=== PATIENT | female | born 2000 | race Two or more races ===

== ENCOUNTER 2021-01-13 07:03 | Emergency (ER) | payer OTHER ==
--- NOTE | 2021-01-13 08:20 | EDM.PDOC ---
ED HPI GENERAL MEDICAL PROBLEM - General Chief Complaint: General Stated Complaint: abd pain, RYDER, sore throat Time Seen by Provider: 01/13/21 07:22 Source of Information: Reports: Patient History Limitations: Reports: No Limitations - History of Present Illness INITIAL COMMENTS - FREE TEXT/NARRATIVE: Pt. presents to ER with complaints of cough, sore throat, abdominal cramping, and congestion. She was seen at [facility] last week. At that time, it was mainly abdominal cramping and diarrhea, but she states that the diarrhea has improved. She denies any fever or chills. No chest pain or shortness of breath. Denies any headache. She states that she is still experiencing diffuse abdominal cramping. It does not localize in one area. Pt. was prescribed bentyl and zofran at [facility] last week. She hadn't taken it since last night. She took it shortly before presenting to ER. During her stay, she reported that her symptoms were starting to improve. Denies any ill contacts. No recent antibiotic use. No recent hospitalizations or ill contacts. Has had 2 step covid vaccination and had the illness last january. Onset Date: 01/02/21 Location: Reports: Abdomen, Generalized Headache Pain Score (Numeric/FACES): 10 Abdominal Pain Score (Numeric/FACES): 10 - Related Data Allergies Allergy/AdvReac Type Severity Reaction Status Date / Time No Known Allergies Allergy Verified 01/13/21 07:11 Home Meds: Home Meds Dicyclomine [Bentyl] 1 tab PO QID PRN 01/13/21 [History] Etonogestrel [Nexplanon] 1 implant INJECT ASDIRECTED 01/13/21 [History] Ondansetron [Zofran ODT] 8 mg SL TID PRN 01/13/21 [History] Social & Family History - Tobacco Use Tobacco Use Status *Q: Current Every Day Tobacco User Years of Tobacco use: 2 Packs/Tins Daily: 0 Second Hand Smoke Exposure: Yes - Caffeine Use Caffeine Use: Reports: Coffee, Soda - Alcohol Use Days Per Week of Alcohol Use: 3 Number of Drinks Per Day: 2 Total Drinks Per Week: 6 - Recreational Drug Use Recreational Drug Use: Yes Drug Use in Last 12 Months: Yes Recreational Drug Type: Reports: Marijuana/Hashish Recreational Drug Use Frequency: Daily ED ROS GENERAL - Review of Systems Review Of Systems: See Below Constitutional: Reports: Malaise. Denies: Fever, Chills HEENT: Reports: Rhinitis, Sinus Problem, Throat Pain Respiratory: Reports: Cough Cardiovascular: Reports: No Symptoms Endocrine: Reports: No Symptoms GI/Abdominal: Reports: Abdominal Pain (cramping) : Reports: No Symptoms Musculoskeletal: Reports: No Symptoms Skin: Reports: No Symptoms Neurological: Reports: No Symptoms Psychiatric: Reports: No Symptoms Hematologic/Lymphatic: Reports: No Symptoms Immunologic: Reports: No Symptoms ED EXAM, GENERAL - Physical Exam Exam: See Below Exam Limited By: No Limitations General Appearance: Alert, WD/WN, No Apparent Distress Eye Exam: Bilateral Eye: EOMI, PERRL Throat/Mouth: Normal Inspection, Normal Lips, Normal Teeth, Normal Gums, Normal Oropharynx, Normal Voice, No Airway Compromise Head: Atraumatic, Normocephalic Neck: Normal Inspection, Supple, Non-Tender, Full Range of Motion Respiratory/Chest: No Respiratory Distress, Lungs Clear, Normal Breath Sounds, No Accessory Muscle Use, Chest Non-Tender Cardiovascular: Normal Peripheral Pulses, Regular Rate, Rhythm, No Edema, No JVD, No Murmur Peripheral Pulses: 4+: Radial (L) GI/Abdominal: Soft, Non-Tender, No Organomegaly, No Distention, No Mass (Female) Exam: Deferred Rectal (Female) Exam: Deferred Back Exam: Normal Inspection, Full Range of Motion Extremities: Normal Inspection, Normal Range of Motion, Non-Tender, No Pedal Edema, Normal Capillary Refill Neurological: Alert, Oriented, CN II-XII Intact, Normal Cognition, Normal Gait, Normal Reflexes, No Motor/Sensory Deficits Psychiatric: Normal Affect, Normal Mood Course - Vital Signs Last Recorded V/S: Last Vital Signs Temp 37.2 C 01/13/21 07:17 Pulse 53 L 01/13/21 07:17 Resp 14 01/13/21 07:17 BP 103/39 L 01/13/21 07:17 Pulse Ox 99 01/13/21 07:17 - Orders/Labs/Meds Orders: Active Orders 24 hr Category Date Time Status CULTURE STREP A CONFIRMATION [RM] Stat Lab 01/13/21 07:05 Results STREP SCRN A RAPID W CULT CONF [RM] Stat Lab 01/13/21 07:05 Results Isolation [COMM] Routine Oth 01/13/21 07:15 Active Labs: Laboratory Tests 01/13/21 Range/Units 07:05 SARS-CoV-2 RNA (DAMIEN) Negative (NEGATIVE) Departure - Departure Time of Disposition: :21 Disposition: Home, Self-Care 01 Clinical Impression: Viral illness - Discharge Information Instructions: Viral Illness, Adult Referrals: PCP,Unknown [Primary Care Provider] - Forms: ED Department Discharge, ED Return to Work/School Form Additional Instructions: Home to rest. Off work today. Stay away from others if you develop a fever. You can return to work after you have been fever-free for 24 hours. Drink plenty of fluids. Continue with current medications. recheck in clinic in 7-10 days. Sepsis Event Note (ED) - Focused Exam Vital Signs: Vital Signs Temp Pulse Resp BP Pulse Ox 01/13/21 07:17 37.2 C 53 L 14 103/39 L 99 - Problem List Review Problem List Initiated/Reviewed/Updated: Yes - My Orders Last 24 Hours: My Active Orders 01/13/21 07:05 CULTURE STREP A CONFIRMATION [RM] Stat STREP SCRN A RAPID W CULT CONF [RM] Stat 01/13/21 07:15 Isolation [COMM] Routine - Assessment/Plan Last 24 Hours: My Active Orders 01/13/21 07:05 CULTURE STREP A CONFIRMATION [RM] Stat STREP SCRN A RAPID W CULT CONF [RM] Stat 01/13/21 07:15 Isolation [COMM] Routine Plan: Covid 19, influenza and strep screens were all negative. Discussed findings with patient. Advised watchful waiting at this point. Symptoms most consistent with viral illness. Advised to continue with current medication. Tylenol and ibuprofen for fever/discomfort. Advised to quarantine if she has a fever. Drink plenty of fluids. Return to ER if she has worsening abdominal discomfort, chest pain, shortness of breath, or other worrisome signs/symptoms.
== END 2021-01-13 08:37 | disposition home or self-care (01) ==
LOC: LL.ED 07:03
DX: B34.9 Viral infection, unspecified (principal); Z72.0 Tobacco use; Z20.822 Contact with and (suspected) exposure to COVID-19
CPT/HCPCS: 87081; 87430; 87804; 99283; 99284; U0002